=== PATIENT | male | born 1965 | race Two or more races ===

== ENCOUNTER 2024-11-27 07:41 | Inpatient (IN) | payer MEDICAID, OTHER ==
[~2024-11-27] VITALS: Ht 160 cm; Wt 86.2 kg
[2024-11-27] VITALS (22 sets, daily range): BP systolic 34–118; BP diastolic 18–88; TEMP 97.8–98; O2SAT 92–98
[2024-11-27] MEDS ORDERED: VANCOMYCIN IV 200 ML ONE (08:00)
[2024-11-27 08:04] LABS: BASOPHILS % (AUTO) 0.2 % (0.0-2.0); EOSINOPHILS % (AUTO) 0.2 % (0.0-7.0); HEMATOCRIT 42.6 % (36.7-47.1); HEMOGLOBIN 13.6 g/dL (12.5-16.3); LYMPHOCYTES % (AUTO) 7.7 % (20.5-51.5); MEAN CORPUSCULAR HEMOGLOBIN 31.3 uug (23.8-33.4); MEAN CORPUSCULAR HGB CONC 32 g/dL (32.5-36.3); MEAN CORPUSCULAR VOLUME 98.4 fL (73.0-96.2); MONOCYTES # (AUTO) 1.9 K/uL (0.1-1.30); MONOCYTES % (AUTO) 7.5 % (0.0-11.0); NEUTROPHILS # (AUTO) 21.6 K/uL (1.8-8.9); NEUTROPHILS % (AUTO) 84.4 % (38.5-71.5); PLATELET COUNT (AUTO) 343 K/uL (152-348); RED BLOOD CELL COUNT(AUTO) 4.33 MIL/uL (4.06-5.63); RED CELL DISTRIBUTION WIDTH 17.4 % (12.1-16.2); WHITE BLOOD COUNT (AUTO) 25.6 K/uL (3.6-10.2)
[2024-11-27] MEDS: IV NORMAL SALINE 1000 ML BAG IV ONE ×3 (08:06→13:42)
[2024-11-27] MEDS: VANCOMYCIN IV 1,000 MG in IV DEXTROSE 5% 250 ML IV ONE (08:06)
[2024-11-27 08:09] LABS: ABG BASE EXCESS -24.2 mmol/L (-2.0-3.0); ABG HCO3 4.6 mmol/L (21.0-28.0); ABG PCO2 17.2 mmHg (35.0-48.0); ABG PH 7.043 (7.350-7.450); ABG PO2 101.7 mmHg (83.0-108.0); ABG SITE RIGHT FEMORAL; ABG TOTAL HEMOGLOBIN 13.9 G/dL (13.5-17.5); AaDO2 94.8 mmHg; COHb 0.7 % (0.5-1.5); MetHb 0.4 % (0.0-1.5); O2Hb 94.3 % (94.0-98.0)
[2024-11-27] MEDS ORDERED: SODIUM BICARBONATE 8.4% 50 MEQ/50 ML DISP.SYRIN IV ONE (08:24)
[2024-11-27] MEDS: SODIUM BICARBONATE 8.4% 50 MEQ/50 ML DISP.SYRIN IV ONE ×2 (08:29→14:39)
[2024-11-27] MEDS: CEFTRIAXONE 2 G in IV DEXTROSE 5% 100 ML IV ONE (08:37)
[2024-11-27 08:39] LABS: ALANINE AMINOTRANSFERASE 24 U/L (16-63); ALBUMIN 2.8 g/dL (3.4-5.0); ALKALINE PHOSPHATASE 70 U/L (50-136); ASPARTATE AMINOTRANSFERASE 29 U/L (15-37); BILIRUBIN,DIRECT 0.2 mg/dL (0.0-0.2); BILIRUBIN,TOTAL 0.4 mg/dL (0.2-1.0); CALCIUM 8.2 mg/dL (8.5-10.1); CHLORIDE 100 mmol/L (98-107); CREATININE 6.5 mg/dL (0.6-1.3); GLUCOSE 196 mg/dL (74-106); NT-PRO BNP 11688 pg/mL (0-125); POTASSIUM 4.1 mmol/L (3.5-5.1); SODIUM SERUM 145 mmol/L (136-145); TOTAL PROTEIN, SERUM 6.5 g/dL (6.4-8.2); UREA NITROGEN, BLOOD 47 mg/dL (7-18)
[2024-11-27 08:57] LABS: LACTIC ACID 20.5 mmol/L (0.4-2.0)
[2024-11-27 08:58] LABS: CARBON DIOXIDE 8 mmol/L (21-32)
[2024-11-27 09:00] LABS: DIFFERENTIAL COMMENT 1
[2024-11-27] MEDS ORDERED: ONDA-104 PO (10:05)
[2024-11-27] MEDS ORDERED: NOREPINEPHRINE 8MG/NS 250ML 250 ML IV ONE ×4 (10:07→16:55)
[2024-11-27] MEDS ORDERED: CEPH500T PO (10:08)
[2024-11-27] MEDS ORDERED: FAMO20TA8 PO (10:12)
[2024-11-27] MEDS: NOREPINEPHRINE 8MG/NS 250ML 250 ML IV PRN (10:21)
[2024-11-27] MEDS ORDERED: BENZ200C53 PO (10:44)
[2024-11-27] MEDS ORDERED: HYDROMORPHONE 1 MG/1 ML DISP.SYRIN ONE (11:59)
[2024-11-27] MEDS ORDERED: ONDANSETRON 4 MG/2 ML VIAL ONE (11:59)
[2024-11-27] MEDS: HYDROMORPHONE 1 MG/1 ML DISP.SYRIN IV ONE (12:06)
[2024-11-27] MEDS: ONDANSETRON 4 MG/2 ML VIAL IV ONE (12:06)
[2024-11-27 12:28] LABS: *BILIRUBIN,URIN NEGATIVE (NEGATIVE); *BLOOD, URINE 2+ (NEGATIVE); *CLARITY,URINE CLEAR (CLEAR); *COLOR,URINE YELLOW (YELLOW); *KETONES,URINE NEGATIVE (NEGATIVE); *PROTEIN,URINE 2+ (NEGATIVE); *UROBILINOGEN,URINE 0.2 E.U./dl (NORMAL); LEUKOCYTE ESTERASE ,URINE 1+ (NEGATIVE); NITRITE, URINE NEGATIVE (NEGATIVE); PH,URINE 6.5 (5.0-8.0); UGLUCOSE TRACE (NEGATIVE)
[2024-11-27 12:48] LABS: BACTERIA,URINE MODERATE /HPF (NONE SEEN); SQUAMOUS EPITHELIAL CELL,UR FEW /HPF (NONE SEEN); WBC,URINE 80-100 /HPF (0-3)
[2024-11-27 12:52] LABS: *OCCULT BLOOD STOOL POSITIVE (NEGATIVE)
[2024-11-27] MEDS ORDERED: SWABABLE VALVE TRANSFER SET EA MC ONE (12:53)
[2024-11-27] MEDS ORDERED: IOHEXOL 300MG/ML 100 ML INFUS..BTL ONE (12:53)
[2024-11-27] MEDS ORDERED: IV NORMAL SALINE 250 ML IV ONE (12:54)
[2024-11-27] MEDS ORDERED: REMEDY ESSENTIAL ZINC PASTE 113 GM TP PRN (13:15)
[2024-11-27] MEDS ORDERED: IV D5W 1000ML 1,000 ML IV ONE (13:30)
[2024-11-27 13:42] LABS: BAND % (MANUAL) 41 % (0-10); LYMPHOCYTES % (MANUAL) 9 % (20-40); METAMYELOCYTES % 12 % (0-1); MONOCYTES % (MANUAL) 8 % (2-10); NEUTROPHILS % (MANUAL) 30 % (42-75)
[2024-11-27 13:43] LABS: ANISOCYTOSIS 1+; PLATELET ESTIMATE ADEQUATE
[2024-11-27] MEDS ORDERED: MEROPENEM 500 MG in IV NORMAL SALINE 50 ML IV SCH (14:00)
[2024-11-27] MEDS: SODIUM BICARBONATE 8.4% 100 MEQ in IV D5W 1000ML 1,000 ML IV PRN (14:39)
[2024-11-27] MEDS ORDERED: ACETAMINOPHEN 650 MG SUPP.RECT RC ONE (15:08)
[2024-11-27] MEDS ORDERED: KETOROLAC TROMETHAMINE 15 MG INJ ONE (15:08)
[2024-11-27 15:14] LABS: CALCIUM 6.6 mg/dL (8.5-10.1); CREATININE 4.9 mg/dL (0.6-1.3); POTASSIUM 4.3 mmol/L (3.5-5.1)
[2024-11-27] MEDS: KETOROLAC TROMETHAMINE 15 MG INJ IVP ONE (15:15)
[2024-11-27] MEDS: ACETAMINOPHEN 650 MG SUPP.RECT RC PRN (15:15)
[2024-11-27] MEDS ORDERED: DOPamine IV DRIP 400 MG/250ML 250 ML ONE (17:16)
[2024-11-27] MEDS: SODIUM BICARBONATE 8.4% 150 MEQ in IV D5W 1000ML 1,000 ML IV PRN (18:32)
[2024-11-27] MEDS: PHENYLEPHRINE IV 100 MG in IV NORMAL SALINE 240 ML IV PRN (18:53)
[2024-11-27] MEDS ORDERED: NOREPINEPHRINE BITARTRATE 4 MG/4 ML VIAL IV ONE (20:08)
[2024-11-27] MEDS ORDERED: MEROPENEM 500MG/NS 50ML PB ***ER PYXIS ONLY IV ONE (20:14)
[2024-11-27] MEDS: NOREPINEPHRINE BITARTRATE 32 MG in IV NORMAL SALINE 218 ML IV PRN (20:59)
[2024-11-27] MEDS: ONDANSETRON 4 MG/2 ML VIAL IV PRN (21:15)
[2024-11-27] MEDS: MEROPENEM 500 MG in IV NORMAL SALINE 50 ML IV SCH (21:24)
[2024-11-27] MEDS ORDERED: MORPHINE SULFATE 2 MG/1 ML DISP.SYRIN IV PRN (21:30)
[2024-11-28] VITALS (51 sets, daily range): BP systolic 91–149; BP diastolic 58–97; TEMP 97.7–99; O2SAT 95–98
[2024-11-28 05:13] LABS: BASOPHILS % (AUTO) 0.1 % (0.0-2.0); EOSINOPHILS # (AUTO) 0.3 K/uL (0.0-0.7); EOSINOPHILS % (AUTO) 1.9 % (0.0-7.0); HEMATOCRIT 40.4 % (36.7-47.1); HEMOGLOBIN 13.2 g/dL (12.5-16.3); LYMPHOCYTES # (AUTO) 0.5 K/uL (0.8-4.8); LYMPHOCYTES % (AUTO) 3.2 % (20.5-51.5); MEAN CORPUSCULAR HEMOGLOBIN 30.7 uug (23.8-33.4); MEAN CORPUSCULAR HGB CONC 33 g/dL (32.5-36.3); MEAN CORPUSCULAR VOLUME 94.3 fL (73.0-96.2); MONOCYTES # (AUTO) 0.8 K/uL (0.1-1.30); MONOCYTES % (AUTO) 5.8 % (0.0-11.0); NEUTROPHILS # (AUTO) 12.6 K/uL (1.8-8.9); PLATELET COUNT (AUTO) 225 K/uL (152-348); RED BLOOD CELL COUNT(AUTO) 4.28 MIL/uL (4.06-5.63); RED CELL DISTRIBUTION WIDTH 17.1 % (12.1-16.2); WHITE BLOOD COUNT (AUTO) 14.2 K/uL (3.6-10.2)
[2024-11-28 05:18] LABS: DIFFERENTIAL COMMENT 1
[2024-11-28 05:37] LABS: CALCIUM 6.4 mg/dL (8.5-10.1); CREATININE 5.4 mg/dL (0.6-1.3); MAGNESIUM 1.7 mg/dL (1.8-2.4); POTASSIUM 4.8 mmol/L (3.5-5.1); VANCOMYCIN,RANDOM 12.6 ug/mL (20.0-30.0)
[2024-11-28 05:38] LABS: PHOSPHOROUS 13.3 mg/dL (2.5-4.9)
[2024-11-28 06:20] LABS: BAND % (MANUAL) 6 % (0-10); EOSINOPHILS % (MANUAL) 1 % (0-8); LYMPHOCYTES % (MANUAL) 3 % (20-40); MONOCYTES % (MANUAL) 6 % (2-10); NEUTROPHILS % (MANUAL) 84 % (42-75); PLATELET ESTIMATE ADEQUATE
[2024-11-28 06:21] LABS: ANISOCYTOSIS 1+
[2024-11-28] MEDS: PANTOPRAZOLE SODIUM 40 MG VIAL IV SCH (08:51)
[2024-11-28] MEDS: VANCOMYCIN IV 1,000 MG in IV DEXTROSE 5% 250 ML IV ONE (08:59)
[2024-11-28] MEDS ORDERED: VANCOMYCIN IV 1,000 MG in IV DEXTROSE 5% 250 ML IV SCH (09:00)
[2024-11-28] MEDS: HEPARIN SODIUM,PORCINE 5,000 UNITS/ML VIAL IV ONE (10:15)
[2024-11-28] MEDS: ASPIRIN 325 MG TABLET NG ONE (10:23)
[2024-11-28] MEDS: CLOPIDOGREL 75 MG TABLET NG ONE (10:27)
[2024-11-28] MEDS: HEPARIN/D5W DRIP 500 ML IV PRN (10:42)
[2024-11-28] MEDS ORDERED: METRONIDAZOLE 500 MG/NS 100 ML PIGGYBACK IV ONE (11:45)
[2024-11-28] MEDS: IV NS 1000 ML 1,000 ML IV ONE ×2 (12:16→12:45)
[2024-11-28] MEDS: HYDROCORTISONE SOD SUCCINATE 100 MG/2 ML VIAL IV SCH (12:42)
== END 2024-11-28 15:00 | disposition short-term general hospital (02) | DRG 720 ==
LOC: ER 07:41 → UNDOADMIN 13:25 → ICU IN 13:25 → CCU 16:56
PROC: 05HB33Z Insertion of Infusion Device into Right Basilic Vein, Percutaneous Approach (ICD-10-PCS; principal; 2024-11-27)
DX: A41.9 Sepsis, unspecified organism (principal); N17.0 Acute kidney failure with tubular necrosis; R65.21 Severe sepsis with septic shock; I21.3 ST elevation (STEMI) myocardial infarction of unspecified site; K55.9 Vascular disorder of intestine, unspecified; E87.20 Acidosis, unspecified; D68.9 Coagulation defect, unspecified; E83.51 Hypocalcemia; N10 Acute pyelonephritis; S06.9XAS Unspecified intracranial injury with loss of consciousness status unknown, sequela; F06.70 Mild neurocognitive disorder due to known physiological condition without behavioral disturbance; R40.2362 Coma scale, best motor response, obeys commands, at arrival to emergency department; R40.2242 Coma scale, best verbal response, confused conversation, at arrival to emergency department; R40.2132 Coma scale, eyes open, to sound, at arrival to emergency department; W13.2XXS Fall from, out of or through roof, sequela; Z87.442 Personal history of urinary calculi; N20.2 Calculus of kidney with calculus of ureter; Z79.899 Other long term (current) drug therapy; E86.0 Dehydration; T68.XXXA Hypothermia, initial encounter; X31.XXXA Exposure to excessive natural cold, initial encounter
CPT/HCPCS: 36415; 36600; 70450; 71045; 83605; 83735; 84100; 84484; 85025; 85730; 87040; 87077; 87086; 89055; 93005; 93307; A4663; C1758; G0378; J0696; J1171; J1644; J1720; J1885; J2185; J2405; J2470; J3370; J3490; J7040; J7050; J7070; Q9967